=== PATIENT | male | born 1965 ===

== ENCOUNTER 2018-12-20 13:29 | Outpatient (CLI) | payer BC ==
--- NOTE | 2018-12-20 17:22 | Diagnostic Imaging Report ---
Indication: Abnormal renal function tests, microhematuria Technique: Grayscale and duplex images of the kidneys, retroperitoneum, and bladder were obtained. Comparison: none Findings: Right kidney measures 11.6 cm in length. Left kidney measures 11.5 cm in length. Both kidneys demonstrate normal echogenicity. No hydronephrosis. Right kidney demonstrates a 5 mm echogenic shadowing focus in the renal sinus and another 4 mm similar finding in the lower pole renal sinus. It demonstrates small cysts. Left kidney demonstrates a 3.1 cm upper pole cyst. Normal inferior vena cava. Bladder is normal. The prostate is prominent, calculated volume 56 mL Impression: Nonobstructive right renal calculi Negative for hydronephrosis Bilateral renal cysts Prominent prostate, 56 mL volume.
== END 2018-12-20 15:29 | disposition home or self-care (01) ==
LOC: ULS 13:29
DX: R94.4 Abnormal results of kidney function studies (principal); R31.9 Hematuria, unspecified; N28.1 Cyst of kidney, acquired; N20.0 Calculus of kidney
CPT/HCPCS: 76770